=== PATIENT | male | born 1965 | race Caucasian/White ===

== ENCOUNTER 2018-06-07 12:50 | Day surgery (SDC) | payer OTHER ==
[2018-06-07] MEDS ORDERED: MIDAZOLAM 1 MG/ML 2 ML INJ (14:58)
[2018-06-07] MEDS ORDERED: FENTAnyl 50 MCG/ML VIAL (14:58)
== END 2018-06-07 16:49 | disposition home or self-care (01) ==
LOC: GIL 12:50
DX: Z12.11 Encounter for screening for malignant neoplasm of colon (principal); K64.1 Second degree hemorrhoids; K57.30 Diverticulosis of large intestine without perforation or abscess without bleeding
CPT/HCPCS: 45378